=== PATIENT | male | born 2000 | race African-American/Black ===

== ENCOUNTER 2019-03-19 14:37 | Emergency (ER) | payer OTHER ==
[~2019-03-19] VITALS: Ht 170.2 cm; Wt 70.2 kg
[2019-03-19] MEDS ORDERED: IBUPROFEN 800 MG TAB PO ONE (17:15)
[2019-03-19 17:58] VITALS: BP 128/76
--- NOTE | 2019-03-19 19:19 | REP ---
REASON: Pain after trauma. There is a fracture of the third metacarpal. Electronically Signed by Radames Waller DO 03/20/2019 10:43 A
--- NOTE | 2019-03-19 19:20 | REP ---
REASON: Pain after trauma. FINDINGS: No acute fracture or destructive osseous lesion. Please see the hand report. Electronically Signed by Radames Waller DO 03/20/2019 10:44 A
--- NOTE | 2019-03-19 19:59 | REP ---
REASON: Pain after trauma. FINDINGS: No acute fracture or destructive osseous lesion. See the hand report. Electronically Signed by Radames Waller DO 03/20/2019 10:45 A
== END 2019-03-19 18:02 | disposition home or self-care (01) ==
LOC: M ED 14:37
DX: S62.303A Unspecified fracture of third metacarpal bone, left hand, initial encounter for closed fracture (principal); W01.0XXA Fall on same level from slipping, tripping and stumbling without subsequent striking against object, initial encounter; Y92.018 Other place in single-family (private) house as the place of occurrence of the external cause

== ENCOUNTER 2020-07-31 08:05 | Emergency (ER) | payer OTHER ==
[~2020-07-31] VITALS: Ht 170.2 cm; Wt 76.2 kg
--- OUTSIDE RECORDS SUMMARY | 2020-07-31 08:19 | CCD ---
Author Author [facility] Organization [facility] Address Unknown Phone Unavailable Care Team Providers Care Comb Capper Name Role Phone Mandappa, Betsy CASAC Unavailable Unavailable Mandappa, Betsy CASAC Unavailable Unavailable Mandappa, Betsy CASAC Unavailable Unavailable Mandappa, Betsy CASAC Unavailable Unavailable Bedoya, N Kathy Unavailable Bedoya, N Kathy Unavailable Bedoya, N Kathy Unavailable Bedoya, N Kathy Unavailable Bedoya, N Kathy Unavailable Bedoya, N Kathy Unavailable Bedoya, N Kathy Unavailable Bedoya, N Kathy Unavailable Bedoya, N Kathy Unavailable Bedoya, N Kathy Unavailable Bedoya, N Kathy Unavailable Bedoya, N Kathy Unavailable Bedoya, N Kathy Unavailable Bedoya, N Kathy Unavailable Bedoya, N Kathy Unavailable Bedoya, N Kathy Unavailable Bedoya, N Kathy Unavailable Bedoya, N Kathy Unavailable Bedoya, N Kathy Unavailable Bedoya, N Kathy Unavailable Bedoya, N Kathy Unavailable Bedoya, N Kathy Unavailable Bedoya, N Kathy Unavailable Bedoya, N Kathy Unavailable Bedoya, N Kathy Unavailable Bedoya, N Kathy Unavailable Bedoya, N Kathy Unavailable Bedoya, N Kathy Unavailable Gely ROBLES, Robert Vargas Unavailable Unavailable ISMAEL, Robert JUAREZ Unavailable Unavailable HERNÁNDEZ,, VISH VARGAS Unavailable Unavailable HERNÁNDEZ,, VISH VARGAS Unavailable Unavailable HERNÁNDEZ,, VISH VARGAS Unavailable Unavailable HERNÁNDEZ,, VISH VARGAS Unavailable Unavailable HERNÁNDEZ,, VISH VARGAS Unavailable Unavailable HERNÁNDEZ,, VISH VARGAS Unavailable Unavailable HERNÁNDEZ,, VISH VARGAS Unavailable Unavailable HERNÁNDEZ,, VISH VARGAS Unavailable Unavailable HERNÁNDEZ,, VISH VARGAS Unavailable Unavailable HERNÁNDEZ,, VISH VARGAS Unavailable Unavailable HERNÁNDEZ,, VISH VARGAS Unavailable Unavailable HERNÁNDEZ,, VISH VARGAS Unavailable Unavailable Re-disclosure Warning The records that you are about to access may contain information from federally-assisted alcohol or drug abuse programs. If such information is present, then the following federally mandated warning applies: This information has been disclosed to you from records protected by federal confidentiality rules (42 CFR part 2). The federal rules prohibit you from making any further disclosure of this information unless further disclosure is expressly permitted by the written consent of the person to whom it pertains or as otherwise permitted by 42 CFR part 2. A general authorization for the release of medical or other information is NOT sufficient for this purpose. The Federal rules restrict any use of the information to criminally investigate or prosecute any alcohol or drug abuse patient.The records that you are about to access may contain highly sensitive health information, the redisclosure of which is protected by Article 27-F of the [facility] Public Health law. If you continue you may have access to information: Regarding HIV / AIDS; Provided by facilities licensed or operated by the [facility] Office of Mental Health; or Provided by the [facility] Office for People With Developmental Disabilities. If such information is present, then the following [facility] mandated warning applies: This information has been disclosed to you from confidential records which are protected by state law. State law prohibits you from making any further disclosure of this information without the specific written consent of the person to whom it pertains, or as otherwise permitted by law. Any unauthorized further disclosure in violation of state law may result in a fine or usp sentence or both. A general authorization for the release of medical or other information is NOT sufficient authorization for further disc losure. Encounters Encounter Providers Location Date Indications Data Source(s ) Outpatient Attender: Kathy BedoyaReferrer: SAM HERNÁNDEZ 02/07/2020 09:46:47 PM EDT [facility] Recurring Patient Referrer: aSm Hernández MD 02/07/2020 11:28 :02 AM EDT [facility] Recurring Patient Referrer: Sam Hernández MD 02/07/2020 11:00 :33 AM EDT [facility] Recurring Patient Referrer: Sam Hernández MD 02/07/2020 10:58 :19 AM EDT [facility] Recurring Patient Referrer: Sam Hernández MD 01/31/2020 11:29 :53 AM EDT [facility] Recurring Patient Referrer: Betsy SLATER 01/29/2020 10:31:54 AM EDT [facility] Outpatient Attender: ANN GUEVARA 2019 07:35:00 AM EDT - 01/19/2020 08:35:[address] [facility] Patient discharged. Insurance Providers Payer name Policy type / Coverage type Policy ID Covered republican ID Covered republican's relationship to rodríguez Policy Rodríguez Plan Information [facility] ACTIVE DUTY [id number] [facility] [id number] [facility] [id number] SELF [id number] [facility] - O/P [id number] 18 [id number] Problems, Conditions, and Diagnoses Code Display Name Description Problem Type Effective Dates Data Source(s) M4802 Spinal stenosis, cervical region Spinal stenosis , cervical region Diagnosis 01/19/2020 07:35:[address] 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 G5622 Lesion of ulnar nerve, left upper limb L esion of ulnar nerve, left upper limb Diagnosis 01/19/2020 07:35:[address] [facility] Results ID Date Data Source [id number] 02/08/2020 09:26:50 PM EDT [facility] PC[facility]: Denys ArzateDOYsabel: 2000Provider: Misti Bedoya: 02/07/2020 History of Present IllnessDenys Arzate is a 19-year-old left-handed young man who is here regarding his left upper extremity. . He reports numbness that involves the left ring and small fingers and discomfort into the hand, radiating to the medial elbow up to the shoulder and into the neck. He thinks this began somewhere around August or September without any interval trauma. He was treated for a left middle finger metacarpal fracture in a short arm cast. The injury occurred in April. He reports that he wore a cast until approximately August due to delayed healing. Eventually, the bone healed in the cast was removed. At least several weeks after cast removal is when he noted numbness into the fingers. This is intermittent but bothersome several times a day, particularly when the elbow was flexed. If he is holding the phone, the symptoms are further exacerbated. Symptoms improve when he ext ends the elbow. He has been working extensively with formal hand therapy. He was given a nighttime splint, but this was placed in flexion. He has been doing his home exercise program and reports that they don't really do much at the formal therapist. He did undergo an MRI of the cervical spine. The results have not yet been relayed to him. He meets with the physician bankruptcy legal assistant next week to review this.He has been in the [employer] for 2 years. He is originally from [place]. He reports being a nonsmoker. He denies any surgeries to the hands. 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 Results/DataEMG dated 09/27/2019 was reviewed., There is evidence of ulnar nerve demyelination approximately 2 cm below the elbow.There is swelling in the motor conduction velocity of the ulnar nerve across the elbow on the left. I am unable to read with a numeric value of this is.On the EMG portion, there is increased inse rtional activity at the left, bicep, tricep, FCR Results/Data OtherX-rays dated 04/11/2019, 05/16/2019, 06/19/2019, and 07/17/2019 were uploaded for review. These are all of the left hand. Initial x-rays in April reveal callus formation and an oblique fracture of the middle finger metacarpal shaft. Subsequent x-rays show callus formation on all 4 cortices. Alignment is appropriate on all views. By July 2019, fracture line is minimally visible with a radiographic healing.There are no appreciable bony or soft tissue abnormalities noted. Aside from the above.MRI of the C-spine was preliminarily reviewed. There are disc bulges in the cervical spine, sparing C7 and C8 Assessment1. Left cubital tunnel Plan PT/OT/Hand Therapy (SOS) Referral Treatment Treatment Status: Complete Done:[id number] Ordered;For: Cubital tunnel syndrome; Ordered By: Kathy Bedoya Performed: Order Comments: Please evaluate and treat for left elbow cubital tunnel symptomsnerve gliding exercises ROM, stretching, strengthening all modalitiesPlease convert to HEP when exercising aloneRevise current othoplast splint to extension position Due: [id number]; Last Updated By: Maryellen Alberts; 02/07/2020 12:21:34PT/OT/Hand Therapy Duration : Six WeeksPT Frequency : Two or three times a week Clinical examination is most consistent with cubital tunnel syndrome. His EMG does show slowing across the elbow when performed in August. However, there were also EMG changes in the biceps and the FCR. An MRI of the neck was performed. To my eye, I do not see any disc bulges in the C7 - 8 and C8 -T1 area that would reproduce his symptoms, but we will await formal evaluation next week. In the meantime, he will continue with his home exercise program working on his nerve gliding exercises. His nighttime elbow splint was fabricated in flexion. Unfortunately, this does cause a transient ischemic effect to the nerve. I would like to have this modified into an extended position. A prescription was given for this today. He will also monitor the amount of time that his elbow is held in flexion. I would like to repeat his nerve test, particularly to monitor the progress of the ulnar nerve conduction velocity across the elbow and to see if there are any changes within the bicep or the FCR. He will return in the nerve test is complete to discuss further treatment options moving forward Signatures Electronically signed by : Kathy Bedoya M.D.; Feb 07 2020 9:46PM EST (Author) Electronically signed by : Kathy Bedoya M.D.; Feb 08 2020 9:26PM EST (Author) Name Value Range Interpretation Code Description Data Aaliyah rce(s) Supporting Document(s) ID Date Data Source [id number] 01/19/2020 03:32:00 [place] [address] PHONE: [phone] FAX: [phone] Name .................. : DANIEL Weldon Acct Number.................. : [id number] ROOM. ................. : MR Number ................... : [id number] Stay type ............. : O/P Discharge Date......... ... : 01/19/20 Admit Date .... ..... : 01/19/20 Admit Phys .................... : ISMAEL CLINE Date of ....... : 2000 Family Phys ................... : UNKNOWN CO Phone .................. : [phone] Age ................................ : 19 Film# .................. .:[id number] Sex ................................. : M Unsigned transcriptions are preliminary reports and do not represent a medical or legal document MRI CERVICAL SPINE W/O CONTRA [id number] COMPLETE:01/19/20 08:36 GARRY [id number] (SPINE PROC REASON: PAIN & RADIATION EVAL BULDGING DISC MRI OF THE CERVICAL SPINE, 01/19/20: FINDINGS: There is reversal of cervical spine lordosis, possibly due to muscle spasm. There is no fracture, subluxation, or focal osseous lesion. C2-C3, intervertebral disc space is unremarkable. C3-C4, there is a right paracentral disc protrusion measuring 2 mm. Contacting and mildly distorting ventral aspect of the spinal cord right of the midline. There is mild right lateral recess narrowing. At C4-C5, central disc protrusion is seen. Contacting and mildly distorting ventral aspect of the spinal cord midline. Mild central canal stenosis is seen. C5-C6, there is left paracentral disc protrusion measuring 2 mm, which results in mild left lateral recess narrowing. There is contact, but no distortion of the spinal cord contour. C6-C7, mild disc bulging is seen without central canal stenosis, lateral recess narrowing. No distortion of the spinal cord contour. C7-T1 and T1-T2, intervertebral disc spaces are unremarkable. Pathology of the spinal cord is not seen. Visualized intracranial contents are unremarkable. The paraspinal soft tissues are unremarkable. IMPRESSION: Reversal of cervical spine lordosis seen, possibly due to muscle spasm. Page 1 of [address] [facility] [address] [place] [address] PHONE: [phone] FAX: [phone] Name .................. : DANIEL Weldon Acct Number.................. : [id number] ROOM. ................. : MR Number ................... : [id number] Stay type ............. : O/P Discharge Date......... ... : 01/19/20 Admit Date ......... : 01/19/20 Admit Phys .................... : ISMAEL ID Date of ....... : 2000 Family Phys ................... : UNKNOWN CO Phone .................. : [phone] Age ................................ : 19 Film# .................. .:[id number] Sex ................................. : M Unsigned transcriptions are preliminary reports and do not represent a medical or legal document MRI CERVICAL SPINE W/O CONTRA [id number] COMPLETE:01/19/20 08:36 GARRY [id number] (SPINE PROC REASON: PAIN & RADIATION EVAL BULDGING DISC Central disc protrusion C4-C5 with mild central canal stenosis and mild distortion of the spinel cord contour. Right paracentral disc protrusion C3-C4, contacting and mildly distorting ventral aspect of the spinal cord right of the midline. Left paracentral disc protrusion C5-C6 without spinal cord distortion. Mild left lateral recess narrowing is seen. C6-C7 mild disc bulging without central canal stenosis, spinal cord distortion, or lateral recess narrowing identified. No signal abnormality noted in the spinal cord. Electronically Reviewed and Signed By Chelly Monreal MD , 01/19/20 15:32, KGG Transcribe Initials: SSR, Transcribe Date: 01/19/20 09:40, Dictation Date: Copy for: ISMAEL Jones via fax Copy for: [address] [place] [address] REC Page 2 of 2 Name Value Range Interpretation Code Description Data Aaliyah rce(s) Supporting Document(s) Procedure
[2020-07-31] MEDS ORDERED: IBUPROFEN 600MG TAB PO ONE (08:30)
--- NOTE | 2020-07-31 08:47 | REP ---
INDICATION: cough COMPARISON: None. TECHNIQUE: Portable AP view of the chest FINDINGS: The mediastinum and cardiac silhouette are within normal limits for portable technique. The lung botello are clear without acute consolidation, effusion, or pneumothorax. Skeletal structures are intact. IMPRESSION: No acute cardiopulmonary process appreciated. <Electronically signed by Marek Frey > 07/31/20 0840
--- OUTSIDE RECORDS SUMMARY | 2020-07-31 08:55 | CCD ---
Author Author [facility] Organization [facility] Address Unknown Phone Unavailable Care Team Providers Care Contact Center Agent Name Role Phone Mandappa, Betsy CASAC Unavailable [...] is protected by Article 27-F of the [facility] Public Health law. If you continue you may have access to information: Regarding HIV / AIDS; Provided by facilities licensed or operated by the [facility] Office of Mental Health; or Provided by the [facility] Office for People With Developmental Disabilities. If such information is present, then the following [facility] mandated warning applies: This information has been [...] law may result in a fine or care home sentence or both. A general authorization for the release of medical or other information is NOT sufficient authorization for further disc losure. Encounters Encounter Providers Location Date Indications Data Source(s ) Outpatient Attender: Kathy BedoyaReferrer: SAM HERNÁNDEZ 02/07/2020 09:46:47 PM EDT [facility] Recurring Patient Referrer: Sam Hernández MD 02/07/2020 11:28 :02 AM EDT [facility] Recurring Patient Referrer: Sam Hernández MD 02/07/2020 11:00 :33 AM EDT [facility] Recurring Patient Referrer: Sam Hernández MD 02/07/2020 10:58 :19 AM EDT [facility] Recurring Patient Referrer: Sam Hernández MD 01/31/2020 11:29 :53 AM EDT [facility] Recurring Patient Referrer: Betsy SLATER 01/29/2020 10:31:54 AM EDT [facility] Outpatient Attender: ANN GUEVARA 2019 07:35:00 AM EDT - 01/19/2020 08:35:[address] [facility] Patient discharged. Insurance Providers Payer name Policy type / Coverage type Policy ID Covered democrat ID Covered democrat's relationship to rodríguez Policy Rodríguez Plan Information [facility] ACTIVE DUTY [id number] SP [id number] [facility] [employer] F [id number] SELF [id number] [facility] - O/P [id number] 18 [id number] Problems, Conditions, and Diagnoses Code Display Name Description Problem Type Effective Dates Data Source(s) M4802 Spinal stenosis, cervical region Spinal stenosis , cervical region Diagnosis 01/19/2020 07:35:[address] 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 G5622 Lesion of ulnar nerve, left upper limb L esion of ulnar nerve, left upper limb Diagnosis 01/19/2020 07:35:[address] [facility] Results ID Date Data Source [id number] 02/08/2020 09:26:50 PM EDT [facility] PC[facility]: Denys ArzateLUCILLE: 2000Provider: Misti Bedoya: 02/07/2020 History of Present [...] to him. He meets with the physician butcher's assistant next week to review this.He has been in the [employer] for 2 years. He is originally from [place]. He reports being a nonsmoker. He denies any surgeries to the hands. 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 [employer] Results/DataEMG dated 09/27/2019 was reviewed., There is [...] Therapy (SOS) Referral Treatment Treatment Status: Complete Done:[id number] Ordered;For: Cubital tunnel syndrome; Ordered By: Kathy Bedoya Performed: Order Comments: Please evaluate and treat for left elbow cubital tunnel symptomsnerve gliding exercises ROM, stretching, strengthening all modalitiesPlease convert to HEP when exercising aloneRevise current othoplast splint to extension position Due: [id number]; Last Updated By: Maryellen Alberts; 02/07/2020 12:21:34PT/OT/Hand [...] rce(s) Supporting Document(s) ID Date Data Source [id number] 01/19/2020 03:32:00 [place] [address] PHONE: [phone] FAX: [phone] Name .................. : DANIEL Weldon Acct Number.................. : [id number] ROOM. ................. : MR Number ................... : [id number] Stay type ............. : O/P Discharge Date......... ... : 01/19/20 Admit Date .... ..... : 01/19/20 Admit Phys .................... : ISMAEL CLINE Date of ....... : 2000 Family Phys ................... : UNKNOWN CO Phone .................. : [phone] Age ................................ : 19 Film# .................. .:[id number] Sex ................................. : M Unsigned transcriptions are preliminary reports and do not represent a medical or legal document MRI CERVICAL SPINE W/O CONTRA [id number] COMPLETE:01/19/20 08:36 GARRY 48782 (SPINE PROC REASON: PAIN & RADIATION EVAL [...] to muscle spasm. Page 1 of 2 [facility] [address] [place] [address] PHONE: [phone] FAX: [phone] Name .................. : DANIEL Weldon Acct Number.................. : [id number] ROOM. ................. : MR Number ................... : [id number] Stay type ............. : O/P Discharge Date......... ... : 01/19/20 Admit Date ......... : 01/19/20 Admit Phys .................... : ISMAEL [place] Date of ....... : 2000 Family Phys ................... : UNKNOWN CO Phone .................. : [phone] Age ................................ : 19 Film# .................. .:[id number] Sex ................................. : M Unsigned transcriptions are preliminary reports and do not represent a medical or legal document MRI CERVICAL SPINE W/O CONTRA [id number] COMPLETE:01/19/20 08:36 GARRY [id number] (SPINE PROC REASON: PAIN & RADIATION EVAL [...] for: ISMAEL Jones via fax Copy for: [address] [place] [address] REC Page 2 of 2 Name Value Range Interpretation Code Description Data Aaliyah rce(s) Supporting Document(s) Procedure
[2020-07-31 09:39] VITALS: BP 129/72
== END 2020-07-31 09:41 | disposition home or self-care (01) ==
LOC: M ED 08:05
DX: J06.9 Acute upper respiratory infection, unspecified (principal); B34.9 Viral infection, unspecified
CPT/HCPCS: 71045; 87880; 99284; U0003